=== PATIENT | female | born 1965 | race Two or more races ===

== ENCOUNTER → 2018-08-12 | Outpatient (CLI) | payer OTHER ==
[2015-12-05 10:18] VITALS: BP 147/82
[2018-08-12 12:17] LABS: BASO % 1 % (0-3); EOS # 0.1 x10^3/uL (0.0-0.7); EOS % 2 % (0-3); HEMATOCRIT 41.2 % (36.0-47.0); HEMOGLOBIN 14.1 g/dL (12.0-15.5); LYMPH % 32 % (24-48); MEAN CORPUSCULAR HEMOGLOBIN 29 pg (25-35); MEAN CORPUSCULAR HGB CONC 34 g/dL (31-37); MEAN CORPUSCULAR VOLUME 86 fL (79-100); MONO # 0.4 x10^3/uL (0.0-1.1); MONO % 6 % (0-9); NEUT # 3.7 x10^3uL (1.8-7.7); NEUT % 59 % (31-73); PLATELET COUNT 168 x10^3/uL (140-400); RED BLOOD COUNT 4.78 x10^6/uL (3.50-5.40); RED CELL DISTRIBUTION WIDTH 13.2 % (11.5-14.5); WHITE BLOOD COUNT 6.2 x10^3/uL (4.0-11.0)
[2018-08-12 12:30] LABS: ALBUMIN 3.8 g/dL (3.4-5.0); ALBUMIN/GLOBULIN RATIO 1.1 (1.0-1.7); CALCIUM 8.5 mg/dL (8.5-10.1); CREATININE 0.6 mg/dL (0.6-1.0); GFR 104.6; POTASSIUM 3.7 mmol/L (3.5-5.1); TOTAL BILIRUBIN 0.6 mg/dL (0.2-1.0); TOTAL PROTEIN 7.4 g/dL (6.4-8.2)
[2018-08-12 12:32] LABS: CHOLESTEROL/HDL RATIO 3.4
== END | disposition home or self-care (01) ==
LOC: LAB 11:58
PROVIDERS: ATTEND Family Medicine
DX: Z01.419 Encounter for gynecological examination (general) (routine) without abnormal findings (principal)
CPT/HCPCS: 36415; 80053; 80061; 84443; 85025

== ENCOUNTER → 2018-08-16 | Outpatient (CLI) | payer OTHER ==
[2015-12-05 10:18] VITALS: BP 147/82
--- NOTE | 2018-08-16 15:18 | RAD ---
DATE: 08/16/2018 EXAM: MAMMO YAZMIN SCREENING BILATERAL HISTORY: Routine screening COMPARISON: 10/06/2016 This study was interpreted with the benefit of Computerized Aided Detection (CAD). Breast Density: HETERO The breast parenchyma is heterogenously dense, which could reduce sensitivity of mammography. Breast parenchyma level C. FINDINGS: 2-D and 3-D tomosynthesis imaging was performed in CC and MLO projections. There is a smooth 7 mm nodule in the inferior aspect of the right breast located just medial to the midline as seen on CC tomosynthesis images #11. It was not clearly visible on the previous study, however, that may have been due to overlap of dense fibroglandular shadows. No other new or enlarging breast densities are seen. Benign calcifications are present. No suspicious microcalcifications are evident. IMPRESSION: Small right breast nodule. Sonographic evaluation is suggested. BI-RADS CATEGORY: 0 INCOMPLETE: NEEDS ADDITIONAL IMAGING EVALUATION AND/OR PRIOR MAMMOGRAMS FOR COMPARISON. RECOMMENDED FOLLOW-UP: ADD ADDITIONAL IMAGING PQRS compliance statement: Patient information was entered into a reminder system with a target due date for the next mammogram. Mammography is a sensitive method for finding small breast cancers, but it does not detect them all and is not a substitute for careful clinical examination. A negative mammogram does not negate a clinically suspicious finding and should not result in delay in biopsying a clinically suspicious abnormality. "Our facility is accredited by the [employer] Mammography Program."
== END | disposition home or self-care (01) ==
LOC: MAMMO 13:41
PROVIDERS: ATTEND Family Medicine
DX: Z12.31 Encounter for screening mammogram for malignant neoplasm of breast (principal); N63.14 Unspecified lump in the right breast, lower inner quadrant
CPT/HCPCS: 77063; 77067

== ENCOUNTER → 2018-08-19 | Outpatient (CLI) | payer OTHER ==
[2015-12-05 10:18] VITALS: BP 147/82
--- NOTE | 2018-08-19 15:10 | RAD ---
Right breast ultrasound Limited History: Abnormal right mammogram on 08/16/2018 Findings: At the right breast 6:00 region there is a 0.5 cm x 0.3 cm x 0.46 cm structure with a single septation. Internal echoes are noted. There is no flow on color Doppler imaging. Impression: Category 3-probably benign. There appears to be a complex cyst accounting for the finding on mammography. Six-month follow-up right breast ultrasound exam is recommended to assess stability.
== END | disposition home or self-care (01) ==
LOC: US 14:03
PROVIDERS: ATTEND Family Medicine
DX: R92.8 Other abnormal and inconclusive findings on diagnostic imaging of breast (principal)
CPT/HCPCS: 76641

== ENCOUNTER → 2019-01-10 | Outpatient (CLI) | payer OTHER ==
[2018-12-28 12:32] VITALS: BP 133/77
[2019-01-10 11:56] LABS: BASO # 0.1 x10^3/uL (0.0-0.2); BASO % 1 % (0-3); EOS # 0.1 x10^3/uL (0.0-0.7); EOS % 2 % (0-3); HEMATOCRIT 42.5 % (36.0-47.0); HEMOGLOBIN 14.1 g/dL (12.0-15.5); LYMPH # 1.9 x10^3/uL (1.0-4.8); LYMPH % 32 % (24-48); MEAN CORPUSCULAR HEMOGLOBIN 29 pg (25-35); MEAN CORPUSCULAR HGB CONC 33 g/dL (31-37); MEAN CORPUSCULAR VOLUME 87 fL (79-100); MONO # 0.5 x10^3/uL (0.0-1.1); MONO % 8 % (0-9); NEUT # 3.4 x10^3uL (1.8-7.7); NEUT % 57 % (31-73); PLATELET COUNT 182 x10^3/uL (140-400); RED BLOOD COUNT 4.87 x10^6/uL (3.50-5.40); RED CELL DISTRIBUTION WIDTH 13.2 % (11.5-14.5)
[2019-01-10 12:05] LABS: BARBITURATES NEG (NEG); BENZODIAZEPINES NEG (NEG); CANNABINOIDS NEG (NEG); COCAINE NEG (NEG); METHADONE NEG (NEG); OPIATES NEG (NEG); PHENCYCLIDINE NEG (NEG)
[2019-01-10 12:06] LABS: AMPHETAMINE/METHAMPHETAMINE NEG (NEG)
[2019-01-10 12:14] LABS: ALBUMIN 3.7 g/dL (3.4-5.0); CALCIUM 8.9 mg/dL (8.5-10.1); CREATININE 0.6 mg/dL (0.6-1.0); GFR 104.2; POTASSIUM 3.8 mmol/L (3.5-5.1); TOTAL BILIRUBIN 0.6 mg/dL (0.2-1.0); TOTAL PROTEIN 7.3 g/dL (6.4-8.2)
== END | disposition home or self-care (01) ==
LOC: LAB 11:26
PROVIDERS: ATTEND Psychiatry & Neurology Neurology
DX: R51 Headache (principal)
CPT/HCPCS: 36415; 80053; 80307; 84443; 85025; 85651

== ENCOUNTER → 2019-01-25 | Outpatient (CLI) | payer OTHER ==
[2018-12-28 12:32] VITALS: BP 133/77
[~2019-01-25] MED LIST: GADOBUTROL 7.5 MMOL/7.5 ML VIAL IV ONE
--- NOTE | 2019-01-25 15:08 | RAD ---
MRI of the Brain without and with Contrast 01/25/2019 Clinical History: Headaches for 5 weeks.. Technique: Unenhanced T1-weighted sagittal and axial and FLAIR, T2-weighted, gradient echo and diffusion-weighted axial images of the brain were obtained. After the intravenous administration of 7.5 cc of Gadavist, enhanced T1-weighted axial and coronal images of the brain were obtained. Findings: Comparison is made to the patient's CT scan of the head dated 12/28/2018. The ventricles and sulci are within normal limits in size and configuration. No area of significant abnormal signal intensity is seen involving the brain parenchyma. No abnormal area of contrast enhancement is seen. No extra-axial fluid collection is noted. There is no MRI evidence of acute ischemia/infarction. Mild mucosal thickening is seen scattered throughout the paranasal sinuses. There are minimal mastoid effusions bilaterally. Normal flow voids are seen within the major vascular structures surrounding the brain parenchyma. Impression: 1. Negative MRI of the brain. 2. Mild paranasal sinus and mastoid disease. Electronically signed by: Junaid Monroy MD (01/25/2019 3:05 PM) [id number]
== END | disposition home or self-care (01) ==
LOC: MRI 12:30
PROVIDERS: ATTEND Psychiatry & Neurology Neurology
DX: G93.2 Benign intracranial hypertension (principal); H74.8X3 Other specified disorders of middle ear and mastoid, bilateral
CPT/HCPCS: 70553; A9585

== ENCOUNTER → 2019-01-27 | Outpatient (CLI) | payer OTHER ==
[2018-12-28 12:32] VITALS: BP 133/77
--- NOTE | 2019-01-27 10:52 | RAD ---
Right breast ultrasound, 01/27/2019: History: Follow-up probable cyst A targeted ultrasound exam of the right breast was performed at the 6:00 location, approximately 5 cm from the nipple, where a small cystic-appearing structure was identified on the 08/19/2018 exam. This structure is redemonstrated. It measures 4 x 4 x 5 mm on today's study. There is a thin linear internal structure. The appearance is that of a septated cyst. It is unchanged in size and configuration since the previous exam. No new abnormality is seen in this region. IMPRESSION: Stable small complex cyst. Sonographic follow-up in 6 months at the time of the patient's yearly mammography is suggested. BI-RADS 3-probably benign findings
== END | disposition home or self-care (01) ==
LOC: US 09:58
PROVIDERS: ATTEND Family Medicine
DX: N60.01 Solitary cyst of right breast (principal)
CPT/HCPCS: 76641

== ENCOUNTER 2019-06-20 19:24 | Emergency (ER) | payer OTHER ==
[2018-12-28 12:32] VITALS: BP 133/77
[2019-06-20] MEDS ORDERED: CYCL10TA2 PO (21:54)
[2019-06-20] MEDS ORDERED: DICL50TA4 PO (21:54)
[2019-06-20] MEDS ORDERED: METH4TAB2 PO (21:54)
== END 2019-06-20 20:11 | disposition left against medical advice (07) ==
LOC: ER 19:24
DX: M54.6 Pain in thoracic spine (principal); Z53.21 Procedure and treatment not carried out due to patient leaving prior to being seen by health care provider

== ENCOUNTER 2019-06-20 20:20 | Emergency (ER) | payer OTHER ==
[~2019-06-20] VITALS: Ht 165.1 cm; Wt 79.4 kg
[2019-06-20 20:26] VITALS: BP 135/89
[2019-06-20] MEDS ORDERED: NAPROXEN 500 MG TABLET PO STA (21:10)
--- NOTE | 2019-06-20 21:29 | PHYS DOC ---
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 Patient states she developed pain instantaneously. She states the pain is worse on certain movements. She states nothing specifically is relieving the pain. Patient states the pain does not radiate to bilateral lower extremities but she feels like she could have some tingling to bilateral lower extremities. Denies any loss of bowel bladder function. Denies any numbness or tenderness to bilateral lower extremities. (JANA BRITO APRN) Review of Systems Review of Systems Constitutional: Denies fever or chills [] Eyes: Denies change in visual acuity, redness, or eye pain [] HENT: Denies nasal congestion or sore throat [] Respiratory: Denies cough or shortness of breath [] Cardiovascular: No additional information not addressed in HPI [] GI: Denies abdominal pain, nausea, vomiting, bloody stools or diarrhea [] : Denies dysuria or hematuria [] Musculoskeletal: Reports low back pain Integument: Denies rash or skin lesions [] Neurologic: Denies headache, focal weakness or sensory changes [] All other systems were reviewed and found to be within normal limits, except as documented in this note. (JANA BRITO APRN) Current Medications Current Medications Current Medications Medications (Trade) Dose Ordered Sig/Lalitha Start Time Stop Time Status Last Admin Dose Admin Naproxen (Naprosyn) 500 mg 1X STAT 06/20/19 21:10 06/20/19 21:12 DC 06/20/19 21:23 500 MG Prednisone (Prednisone) 60 mg 1X ONCE 06/20/19 21:45 06/20/19 21:46 DC 06/20/19 21:23 60 MG (TRICIA LONDON DO) Allergies Allergies Allergies Coded Allergies Type Severity Reaction Last Updated Verified No Known Drug Allergies 12/05/15 No (TRICIA LONDON DO) Physical Exam Physical Exam Constitutional: Well developed, well nourished, no acute distress, non-toxic appearance. [] HENT: Normocephalic, atraumatic, bilateral external ears normal, oropharynx moist, no oral exudates, nose normal. [] Eyes: PERRLA, EOMI, conjunctiva normal, no discharge. [] Neck: Normal range of motion, no tenderness, supple, no stridor. [] Cardiovascular:Heart rate regular rhythm, no murmur [] Lungs & Thorax: Bilateral breath sounds clear to auscultation [] Abdomen: Bowel sounds normal, soft, no tenderness, no masses, no pulsatile masses. [] Skin: Warm, dry, no erythema, no rash. [] Back: Diffuse paraspinal muscle tenderness to bilateral lumbar spine, no midline lumbar spine tenderness, no CVA tenderness. Negative bilateral straight leg raises Extremities: No tenderness, no cyanosis, no clubbing, ROM intact, no edema. [] Neurologic: Alert and oriented X 3, normal motor function, normal sensory function, no focal deficits noted. [] Psychologic: Affect normal, judgement normal, mood normal. [] (JANA BRITO APRN) Current Patient Data Vital Signs Vital Signs Date Time Temp Pulse Resp B/P (MAP) Pulse Ox O2 Delivery O2 Flow Rate FiO2 06/20/19 20:26 97.9 56 14 135/89 (104) 96 Room Air 97.9 (TRICIA LONDON DO) EKG EKG [] (JANA BRITO APRN) Radiology/Procedures Radiology/Procedures [] (JANA BRITO APRN) Radiology/Procedures PROCEDURE: LUMBAR SPINE 2-3V Exam: Lumbar spine 2 views INDICATION: Lower back pain TECHNIQUE: Frontal and lateral views of the lumbar spine with spot magnification view of the lumbosacral junction Comparisons: None FINDINGS: Vertebral body heights are well-maintained. Mild dextroconvex curvature of the spine which may be positional. Mild degenerative disc disease greatest at L4-L5. There is mild bilateral facet arthropathy greatest at L4-L5 and L5-S1. Visualized soft tissues are unremarkable. IMPRESSION: Mild degenerative changes. Electronically signed by: Vania Hoang MD (06/20/2019 10:53 PM) [facility] (TRICIA LONDON DO) Course & Med Decision Making Course & Med Decision Making Pertinent Labs and Imaging studies reviewed. (See chart for details) This is a 54-year-old female patient who presents to the ED today with complaints of bilateral low back pain that began after she bent over to clean the toilet at work. 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 She has no cauda equina syndrome symptoms. Lumbar spine x-rays interpreted by Dr. London negative for any acute findings. Patient was discharged with Medrol Dosepak, cyclobenzaprine, diclofenac. Ice elevation encouraged. Follow-up with PCP in 1-2 weeks. (JANA BRITO APRN) Dragon Disclaimer Dragon Disclaimer This electronic medical record was generated, in whole or in part, using a voice recognition dictation system. (JANA BRITO APRN) Departure Departure Impression: Primary Impression: Acute lumbosacral myofascial strain Disposition: 01 HOME, SELF-CARE Condition: STABLE Referrals: GILBERTO BURGOS MD (PCP) follow up in 1 week Patient Instructions: Lumbosacral Strain Additional Instructions: You were evaluated in the emergency room for lumbosacral strain. Try to ice and elevate the affected area. Take the prescribed pain medication as needed for pain. Follow-up with your own doctor in 1-2 weeks. Scripts Cyclobenzaprine Hcl (CYCLOBENZAPRINE HCL) 10 Mg Tablet 1 TAB PO TID, #30 TAB Prov: JANA BRITO APRN 06/20/19 Diclofenac Sodium (DICLOFENAC SODIUM) 50 Mg Tablet.dr 1 TAB PO BID, #20 TAB 0 Refills Prov: JANA BRITO APRN 06/20/19 Methylprednisolone (MEDROL) 4 Mg Tab.ds.pk 1 PKG PO UD, #1 PKG Prov: JANA BRITO APRN 06/20/19 Attending Signature Attending Signature I have reviewed the PA/HOT SAW HELPER's note and plan of care. I was available for consultation as needed during the patient's visit in the emergency department. I agree with the clinical impression, plan, and disposition. (TRICIA LONDON DO) Problem Qualifiers Primary Impression: Acute lumbosacral myofascial strain Encounter type: initial encounter Qualified Codes: S39.012A - Strain of muscle, fascia and tendon of lower back, initial encounter JANA BRITO APRN Jun 20, 2019 21:29 TRICIA LONDON DO Jun 21, 2019 05:00
[2019-06-20] MEDS ORDERED: predniSONE 20 MG TABLET PO ONE (21:45)
[2019-06-20] MEDS ORDERED: CYCL10TA2 PO (21:54)
[2019-06-20] MEDS ORDERED: DICL50TA4 PO (21:54)
[2019-06-20] MEDS ORDERED: METH4TAB2 PO (21:54)
--- NOTE | 2019-06-20 22:56 | RAD ---
Exam: Lumbar spine 2 views INDICATION: Lower back pain TECHNIQUE: Frontal and lateral views of the lumbar spine with spot magnification view of the lumbosacral junction Comparisons: None FINDINGS: Vertebral body heights are well-maintained. Mild dextroconvex curvature of the spine which may be positional. Mild degenerative disc disease greatest at L4-L5. There is mild bilateral facet arthropathy greatest at L4-L5 and L5-S1. Visualized soft tissues are unremarkable. IMPRESSION: Mild degenerative changes. Electronically signed by: Vania Hoang MD (06/20/2019 10:53 PM) [facility]
== END 2019-06-20 22:01 | disposition home or self-care (01) ==
LOC: ER 20:20
DX: S39.012A Strain of muscle, fascia and tendon of lower back, initial encounter (principal); Z98.51 Tubal ligation status; X50.9XXA Other and unspecified overexertion or strenuous movements or postures, initial encounter; Y93.89 Activity, other specified; Y92.239 Unspecified place in hospital as the place of occurrence of the external cause; Y99.0 Civilian activity done for income or pay
CPT/HCPCS: 72100; 99284; J7512

== ENCOUNTER 2020-11-05 16:43 | Emergency (ER) | payer OTHER ==
[~2020-11-05] VITALS: Ht 165.1 cm; Wt 86.3 kg
[~2020-11-05 16:43] MED LIST changes: +CYCL10TA2 PO; +DICL50TA4 PO; -GADOBUTROL 7.5 MMOL/7.5 ML VIAL IV ONE; +METH4TAB2 PO
--- NOTE | 2020-11-05 17:16 | PHYS DOC ---
Past Medical History Past Medical History: No Pertinent History Past Surgical History: Tubal ligation Smoking Status: Never Smoker Alcohol Use: None Drug Use: None General Adult EDM: Chief Complaint: MULTIPLE COMPLAINTS HPI: HPI: 55[facility]year-old [employer] (bilingual, no travel this year) presents to the ED with complaints of body " chills," that started on Thursday with associated left ear pain described as "muffled," with associated body aches and fatigue. Reports she is taking Motrin 800 every 6 hours and that her chills are only gone for 5 hours. So she took famotidine which relieved her chills - no associated chest pain, abdominal or epigastric pain, dyspnea, hemoptysis, syncope, back pain, sore throat, cough, headache, loss of taste or smell, nausea, vomiting or diarrhea. Reports she cannot see her primary care physician until November and she has a friend visiting from [facility] in a few days and she wanted to get checked out. No associated alcohol or drug use. Does not believe she has been exposed to Covid and declines testing Review of Systems: Review of Systems: Constitutional: Denies diaphoresis or syncope Eyes: Denies change in visual acuity. [] HENT: Denies nasal congestion or sore throat. [] Respiratory: Denies cough or shortness of breath. [] Cardiovascular: Denies chest pain or edema. [] GI: Denies abdominal pain, nausea, vomiting, bloody stools or diarrhea. [] : Denies dysuria. [] Musculoskeletal: Denies back pain or joint pain. [] Integument: Denies rash. [] Neurologic: Denies headache, nuchal rigidity, focal weakness or sensory changes. [] Endocrine: Denies polyuria or polydipsia. [] Lymphatic: Denies swollen glands. [] Psychiatric: Denies depression or anxiety. [] Heart Score: Risk Factors: Risk Factors: DM, Current or recent (<one month) smoker, HTN, HLP, family history of CAD, obesity. Risk Scores: Score 0 - 3: 2.5% MACE over next 6 weeks - Discharge Home Score 4 - 6: 20.3% MACE over next 6 weeks - Admit for Clinical Observation Score 7 - 10: 72.7% MACE over next 6 weeks - Early Invasive Strategies Allergies: Allergies: Allergies Coded Allergies Type Severity Reaction Last Updated Verified No Known Drug Allergies 12/05/15 No Physical Exam: PE: Constitutional: Well developed, well nourished, no acute distress, very talkative/enjoyable HENT: Normocephalic, atraumatic, left TM erythematous with effusion, no mastoid tenderness or obliteration of auricular crease Eyes: EOMI, conjunctiva normal, no discharge. Neck: Normal range of motion, supple, Cardiovascular: S1/2 present, regular rhythm Lungs & Thorax: Speaking in full sentences, bilateral equal chest rise, no tachypnea or increased work of breathing Abdomen: soft, no tenderness, Skin: Warm, dry, Extremities: No tenderness, no lower extremity edema Neurologic: Alert and oriented X 3, no focal deficits noted. [] Psychologic: Affect normal, judgement normal, mood normal. [] EKG: EKG: [] Radiology/Procedures: Radiology/Procedures: [] Course & Med Decision Making: Course & Med Decision Making Pertinent Labs and Imaging studies reviewed. (See chart for details) COVID-19 CRITERIA: The patient was evaluated during the global COVID-19 pandemic, and that diagnosis was suspected/considered upon their initial presentation. Their evaluation, treatment and testing was consistent with current guidelines for patients who present with complaints or symptoms that may be related to COVID-19. Concern for flulike symptoms, weakness, and left otitis media x4 days, cannot exclude Covid or other viral process. Discouraged her dose of Motrin and advised I would prescribe prescriptions with dosing with less risk of gastric ul cer. Has normal brown stools. Will discharge home with antibiotics, recommend isolation and Covid testing, strict ED return precautions were given for chest pain, respiratory distress dyspnea, headache, melena or nuchal rigidity. Encouraged urgent outpatient follow-up with PMD for reevaluation in 3 to 5 days. Life-threatening processes were considered but are low suspicion at this time, given history, physical exam and ED workup. Pt was educated on all prescription medications and adverse effects. All patient's questions were answered and pt was stable at time of discharge. Life/limb-threatening differential includes but is not limited to, auricular hematoma or perichondritis, malignant otitis externa, otitis externa or media, otomycosis, bullous myringitis, mastoiditis, hearing loss or vestibular disorder, tympanic membrane rupture, herpes zoster oticus, contact dermatitis, cholesteatoma, meningitis, brain abscess or venous/cavernous/cerebral sinus thrombosis. I spoken with the patient and her caregivers. I explained the patient's condition, diagnoses and treatment plan based on the information available to me at this time. I have answered the patient and her caregiver's questions and addressed any concerns. The patient and her caregivers have a good understanding of patient's diagnosis, condition and treatment plan as can be expected at this point. Vital signs have been stable. Patient's condition is stable and appropriate for discharge from the emergency department. Patient will pursue further outpatient evaluation with primary care physician or other designated or consulting physician as outlined in the discharge instr uctions. The patient and/or caregivers are agreeable to this plan of care and follow-up instructions have been explained in detail. The patient and/or caregivers have received these instructions in written form and have expressed an understanding of the discharge instructions. The patient and/or caregivers are aware that any significant change of condition or worsening of symptoms should prompt immediate return to this or the closest emergency department or call to 1. Elio Disclaimer: Elio Disclaimer: This electronic medical record was generated, in whole or in part, using a voice recognition dictation system. Departure Departure Impression: Primary Impression: Left otitis media with effusion Additional Impression: Flu-like symptoms Disposition: 01 DC HOME SELF CARE/HOMELESS Condition: STABLE Referrals: DEBORAH WERNER MD (PCP) in 1-2 hours prn Patient Instructions: Otitis Media with Effusion Additional Instructions: Return to ED immediately if your oxygen level drops below 90% (purchase a pulse oximetry at a medical supply store), difficulties breathing including rapid breathing or increased work of breathing (skin sucking under ribs), chest pain or stroke-like symptoms. FOLLOW UP WITH ENT: Otolaryngology Address: [address], [address] [place] [address] [facility] Address: [facility] [address] [address] EMERGENCY DEPARTMENT GENERAL DISCHARGE INSTRUCTIONS Thank you for coming to [facility] Emergency Department (ED) today and trusting us with you care. We trust that you had a positive experience in our Emergency Department. If you wish to speak to the department management, you may call the Director at [phone]. YOUR FOLLOW UP INSTRUCTIONS ARE FOLLOWS: 1. Do you have a private Doctor? If you do not have a private doctor, please ask for a resource list of physicians or clinics that may be able to assist you with follow up care. 2. The Emergency Physicain has interpreted your x-rays. The X-Ray specialist will also review them. If there is a change in the findings, you will be notified in 48 hours when at all possible. 3. A lab test or culture has been done, your results will be reviewed and you will be notified if you need a change in treatment. ADDITIONAL INSTRUCTIONS AND INFORMATION: 1. Your care today has been supervised by a physician who is specially trained in emergency care. Many problems require more than one evaluation for a complete diagnosis and treatment. We recommend that you schedule your follow up appointment as recommended to ensure complete treatment of you illness or injury. If you are unable to obtain follow up care and continue to have a problem, or if your condition worsens, we recommend that you return to the ED. 2. We are not able to safely determine your condition over the phone nor are we able to give sound medical advice over the phone. For these safety reasons, if you call for medical advice we will ask you to come to the ED for further evaluation. 3. If you have any questions regarding these discharge instructions please call the ED at [phone]. SAFETY INFORMATION: In the interest of safety, wellness, and injury prevention; we encourage you to wear your sealbelt, if you smoke; quite smoking, and we encourage family to use a protective helmet for bicycling and other sporting events that present an increased risk for head injury. IF YOUR SYMPTOMS WORSEN OR NEW SYMPTOMS DEVELOP, OR YOU HAVE CONCERNS ABOUT YOUR CONDITION; OR IF YOUR CONDITION WORSENS WHILE YOU ARE WAITING FOR YOUR FOLLOW UP APPOINTMENT; EITHER CONTACT YOUR PRIMARY CARE DOCTOR, THE PHYSICIAN WHOSE NAME AND NUMBER YOU WERE GIVEN, OR RETURN TO THE ED IMMEDIATELY. Scripts Ibuprofen (IBUPROFEN) 600 Mg Tablet 600 MG PO PRN Q6HRS PRN for PAIN, #20 TAB take with food or milk Prov: JOSE EDUARDO AGUERO DO 11/05/20 Acetaminophen (ACETAMINOPHEN) 325 Mg Tablet 2 TAB PO Q6HRS PRN for pain or fever for 24 Days, #20 TAB 0 Refills Prov: JOSE EDUARDO AGUERO DO 11/05/20 Amoxicillin (AMOXICILLIN) 500 Mg Capsule 1 CAP PO Q8HRS for infection for 7 Days, #21 CAP Prov: JOSE EDUARDO AGUERO DO 11/05/20 JOSE EDUARDO AGUERO DO Nov 05, 2020 17:16
[2020-11-05] MEDS ORDERED: AMOX500C PO (17:38)
[2020-11-05] MEDS ORDERED: ACET325T21 PO (18:12)
[2020-11-05] MEDS ORDERED: IBUP-1007 PO (18:12)
[2020-11-05 18:29] VITALS: BP 107/56
== END 2020-11-05 18:29 | disposition home or self-care (01) ==
LOC: ER 16:43
DX: H65.192 Other acute nonsuppurative otitis media, left ear (principal); R53.83 Other fatigue; L53.9 Erythematous condition, unspecified; Z98.51 Tubal ligation status
CPT/HCPCS: 99283

== ENCOUNTER → 2020-11-14 | Outpatient (CLI) | payer OTHER ==
[2020-11-05 18:29] VITALS: BP 107/56
[~2020-11-14] MED LIST changes: +ACET325T21 PO; +AMOX500C PO; +IBUP-1007 PO
--- NOTE | 2020-11-14 16:11 | RAD ---
Examination: 1. Bilateral digital diagnostic mammogram. 2. Limited right breast ultrasound. INDICATION: 55-year-old woman due for bilateral mammographic screening eventually presents for short- term follow-up probably benign cyst in the inferior right breast at the 6:00 position 5 cm from the n ipple. COMPARISON: Bilateral mammograms of 08/16/2018 and limited right breast ultrasound of 01/27/2019. TECHNIQUE: Bilateral CC and MLO views were obtained with 2-D technique and 3-D technique. Magnificati on view of the lateral right breast was obtained along with a full field right ML view with 2-D and 3 -D technique. Computer-aided detection was utilized. Targeted ultrasound of the right breast was subs equently pursued. FINDINGS: Heterogeneously dense breast parenchyma. The left mammogram is negative. The right mammogram shows interval decrease in size and density of the nodule in the inferior right b reast previously assessed as a benign cyst by ultrasound. The interval benign change on mammography o bviated the need for additional ultrasound assessment of this area at this visit. However, an approximately 1.3 cm long asymmetry in the middle third lateral right breast is best seen on the cc view and was pursued for additional imaging with targeted ultrasound of the upper outer qu adrant and magnification views to assess whether there were associated microcalcifications. No defini te calcifications were confirmed on magnification views. Targeted ultrasound of the upper-outer quadrant right breast revealed no dominant mass, architectural distortion or suspicious shadowing. Sonographic survey of the right axilla revealed no adenopathy. This right breast asymmetry is considered probably benign and recommended for short-term follow-up in 6 months. IMPRESSION: Probably benign asymmetry in the lateral right breast. BI-RADS Category 3 Probably benign findings Recommend right diagnostic mammogram and possible ultrasound in 6 months. Discussed with patient. Patient entered into a reminder system with targeted due date for next mammogram. Electronically signed by: Santana Ordoñez MD (11/14/2020 4:09 PM) [id number]
== END ==
LOC: MAMMO 10-22 12:58
PROVIDERS: ATTEND Family Medicine
DX: R92.8 Other abnormal and inconclusive findings on diagnostic imaging of breast (principal); N63.11 Unspecified lump in the right breast, upper outer quadrant
CPT/HCPCS: 76641; 77066; G0279; 77062

== ENCOUNTER → 2020-12-21 | Outpatient (CLI) | payer OTHER ==
[2020-12-21 10:03] LABS: ALBUMIN 3.6 g/dL (3.4-5.0); TOTAL PROTEIN 7.3 g/dL (6.4-8.2)
[2020-12-21 10:04] LABS: CALCIUM 8.8 mg/dL (8.5-10.1); CREATININE 0.6 mg/dL (0.6-1.0); GFR 103.8; POTASSIUM 3.8 mmol/L (3.5-5.1); TOTAL BILIRUBIN 0.7 mg/dL (0.2-1.0)
[2020-12-21 10:16] LABS: BASO # 0.1 x10^3/uL (0.0-0.2); BASO % 1 % (0-3); EOS # 0.2 x10^3/uL (0.0-0.7); EOS % 4 % (0-3); HEMATOCRIT 41.7 % (36.0-47.0); LYMPH # 1.6 x10^3/uL (1.0-4.8); LYMPH % 31 % (24-48); MEAN CORPUSCULAR HEMOGLOBIN 28 pg (25-35); MEAN CORPUSCULAR HGB CONC 34 g/dL (31-37); MEAN CORPUSCULAR VOLUME 85 fL (79-100); MONO # 0.3 x10^3/uL (0.0-1.1); MONO % 6 % (0-9); NEUT % 58 % (31-73); PLATELET COUNT 158 x10^3/uL (140-400); RED BLOOD COUNT 4.93 x10^6/uL (3.50-5.40); RED CELL DISTRIBUTION WIDTH 14.2 % (11.5-14.5); WHITE BLOOD COUNT 5.2 x10^3/uL (4.0-11.0)
[2020-12-21 10:18] LABS: BILIRUBIN,URINE NEGATIVE (NEG); CLARITY,URINE CLEAR; COLOR,URINE YELLOW; NITRITE,URINE NEGATIVE (NEG); PROTEIN,URINE NEGATIVE (NEG-TRACE); UROBILINOGEN,URINE 0.2 mg/dL (0.2 mg/dL)
[2020-12-21 10:40] LABS: BACTERIA,URINE 0 /HPF (0-FEW); RBC,URINE 0 /HPF (0-2)
== END ==
LOC: LAB 09:22
PROVIDERS: ATTEND Family Medicine
DX: Z01.419 Encounter for gynecological examination (general) (routine) without abnormal findings (principal)
CPT/HCPCS: 36415; 80053; 80061; 81001; 85025; 87086

== ENCOUNTER → 2021-07-03 | Outpatient (CLI) | payer OTHER ==
--- NOTE | 2021-07-03 10:13 | RAD ---
EXAM: 1. Unilateral digital diagnostic mammography, right. 2. Right breast ultrasound. HISTORY: Six-month follow-up right breast asymmetry. TECHNIQUE: Right full field digital images were obtained in CC and MLO projections with tomosynthesis . Computer-aided detection was applied. Sonography of the right breast was also performed. COMPARISON: 11/14/2020, 01/27/2019. COMPOSITION: C. The breasts are heterogeneously dense, which may obscure small masses. FINDINGS: The asymmetry of prior concern is no longer identified. Parenchymal density is noted supero laterally. The parenchymal pattern is stable. There is no suspicious mammographic finding. The previously noted cyst at the right 6:00 position 5 cm from the nipple has resolved.. Superolatera lly, only normal parenchyma is seen. Images of the right axilla revealed normal-appearing lymph nodes . BI-RADS CATEGORY 2: Benign. RECOMMENDATION: 1. Resume bilateral screening mammography in October 2021. Electronically signed by: Nash Solomon MD (07/03/2021 10:10 AM) [id number]
== END ==
LOC: MAMMO 08:56
PROVIDERS: ATTEND Family Medicine
DX: R92.8 Other abnormal and inconclusive findings on diagnostic imaging of breast (principal)
CPT/HCPCS: 76641; 77065; G0279; 77061

== ENCOUNTER → 2022-02-03 | Outpatient (CLI) | payer OTHER ==
[~2022-02-03] MED LIST changes: +CYCL10TA19 PO; -CYCL10TA2 PO
--- NOTE | 2022-02-03 16:15 | RAD ---
PROCEDURE: MG BILAT SCREEN+YAZMIN HISTORY: The patient is 57 years old and is seen for Reason: SCREENING / Spl. Instructions: / Histor y: . COMPARISON: August 16, 2018. TECHNIQUE: CC and MLO views of both breasts were obtained. Images were processed by the [employer] computer-aided detection system. DENSITY: The breast parenchyma is heterogeneously dense. This may lower the sensitivity of mammograph y. FINDINGS: No developing mass, suspicious calcifications or architectural distortion. Benign-appear ing calcifications within the left breast, unchanged. IMPRESSION: Benign findings. No evidence of malignancy. Recommend annual screening mammograms per [employer] guidelines. She will be due in one year. BI-RADS category 2 Benign Patient entered into a reminder system for annual screening mammogram. Electronically signed by: Cali Lee DO (02/03/2022 4:12 PM) [id number]
== END ==
LOC: MAMMO 15:14
PROVIDERS: ATTEND Family Medicine
DX: Z12.31 Encounter for screening mammogram for malignant neoplasm of breast (principal)
CPT/HCPCS: 77063; 77067